=== PATIENT | male | born 1985 | race African-American/Black ===

== ENCOUNTER → 2021-12-25 | Outpatient (CLI) | payer OTHER ==
--- NOTE | 2021-12-25 16:24 | XR ---
EXAMINATION TYPE: XR wrist complete LT DATE OF EXAM: 12/25/2021 COMPARISON: NONE HISTORY: 36-year-old male S63.502A UNSPECIFIED SPRAIN OF LEFT WRIST, INITIAL TECHNIQUE: 3 views FINDINGS: The radiocarpal and distal radial ulnar joint as well as mid carpal compartment appear intact. There is marked generalized soft tissue swelling of the hand but no acute fracture, subluxation, dislocatio n seen. IMPRESSION: Marked soft tissue swelling of the hand but without acute osseous abnormality seen.
== END | disposition home or self-care (01) ==
LOC: RADXRMAIN 15:41
PROVIDERS: ATTEND Emergency Medicine
DX: S63.502A Unspecified sprain of left wrist, initial encounter (principal)